=== PATIENT | male | born 1955 | race Caucasian/White ===

== ENCOUNTER 2018-02-24 15:28 | Inpatient (IN) | payer OTHER ==
--- NOTE | 2018-02-24 17:49 | HP ---
COWS - Scale Resting Pulse: 0= [place] 80 or Below Sweatin=Flushed/Facial Moisture Restless Observation: 1= Difficult to Sit Still Pupil Size: 0= Normal to Room Light Bone or Joint Aches: 2= Severe Diffuse Aches Runny Nose/ Eye Tearin= Runny Nose/Eyes GI Upset > 30mins: 1= Stomach Cramp Tremor Observation: 2= Slight Tremor Visible Yawning Observation: 2= >3x During Session Anxiety or Irritability: 2=Irritable/Anxious Goose Flesh Skin: 3=Piloerection COWS Score: 17 CIWA Score - Admission Criteria [facility] Guidelines: Admission for Medically Managed Detox: Requires at least one of the followin. CIWA greater than 12 2. Seizures within the past 24 hours 3. Delirium tremens within the past 24 hours 4. Hallucinations within the past 24 hours 5. Acute intervention needed for co occurring medical disorder 6. Acute intervention needed for co occurring psychiatric disorder 7. Severe withdrawal that cannot be handled at a lower level of care (continued vomiting, continued diarrhea, abnormal vital signs) requiring intravenous medication and/or fluids 8. Admission ROS BHS - HPI Chief Complaint: I need help with my addiction and need to go to detox. Allergies/Adverse Reactions: Allergies Allergy/AdvReac Type Severity Reaction Status Date / Time No Known Allergies Allergy Verified 02/24/18 17:35 History of Present Illness: pt is a 63yr old male with a history of heroin dependence seeking detox for treatment. This is his first time in our detox facility. Exam Limitations: No Limitations - Ebola screening Have you traveled outside of the country in the last 21 days: No Have you had contact with anyone from an Ebola affected area: No Have you been sick,other than usual withdrawal symptoms: No Do you have a fever: No - Review of Systems Constitutional: Chills, Diaphoresis, Night Sweats, Changes in sleep, Unintentional Wgt. Loss EENT: reports: Tearing, Nose Congestion Respiratory: reports: No Symptoms reported Cardiac: reports: No Symptoms Reported GI: reports: Poor Appetite, Poor Fluid Intake : reports: No Symptoms Reported Musculoskeletal: reports: Back Pain Integumentary: reports: Flushing, Sweating Neuro: reports: Headache, Tingling, Tremors Endocrine: reports: Excessive Sweating, Flushing, Intolerance to Heat Hematology: reports: No Symptoms Reported Psychiatric: reports: Judgement Intact, Mood/Affect Appropiate, Orientated x3, Agitated, Anxious Other Systems: Reviewed and Negative Patient History - Patient Medical History Hx Anemia: No Hx Asthma: No Hx Chronic Obstructive Pulmonary Disease (COPD): No Hx Cancer: No Hx Cardiac Disorders: No Hx Congestive Heart Failure: No Hx Hypertension: Yes (lisinopril 10mg) Hx Hypercholesterolemia: No Hx Pacemaker: No HX Cerebrovascular Accident: No Hx Seizures: No Hx Dementia: No Hx Diabetes: No Hx Gastrointestinal Disorders: No Hx Liver Disease: No Hx Genitourinary Disorders: No Hx Sexually Transmitted Disorders: No Hx Renal Disease (ESRD): No Hx Thyroid Disease: No Hx Human Immunodeficiency Virus (HIV): No (negative) Hx Hepatitis C: No (negative) Hx Depression: No Hx Suicide Attempt: No (denies) Hx Bipolar Disorder: No Hx Schizophrenia: No - Patient Surgical History Past Surgical History: No - PPD History Previous Implant?: Yes Documented Results: Negative w/o proof PPD to be Administered?: Yes - Reproductive History Patient is a Female of Child Bearing Age (11 -55 yrs old): No - Smoking Cessation Smoking history: Never smoked Have you smoked in the past 12 months: No Hx Chewing Tobacco Use: No Initiated information on smoking cessation: No - Substance & Tx. History Hx Alcohol Use: No Hx Substance Use: Yes Substance Use Type: Heroin Hx Substance Use Treatment: Yes (last detox [place] >10yrs ago) - Substances Abused Heroin Route: Inhalation Frequency: Daily Amount used: 10 bags Age of first use: 59 Date of Last Use: 02/24/18 Family Disease History - Family Disease History Family History: Denies Admission Physical Exam BHS - Vital Signs Vital Signs: Vital Signs - 24 hr 02/24/18 16:31 Temperature 97.3 F L Pulse Rate 60 Respiratory 18 Rate Blood Pressure 120/77 - Physical General Appearance: Yes: Appropriately Dressed, Moderate Distress, Tremorous, Irritable, Sweating, Anxious HEENTM: Yes: Hearing grossly Normal, Normal Voice, Nasal Congestion, Rhinorrhea Respiratory: Yes: Lungs Clear, Normal Breath Sounds, No Respiratory Distress Neck: Yes: No masses,lesions,Nodules Breast: Yes: Within Normal Limits Cardiology: Yes: Regular Rhythm, Regular Rate, S1, S2 Abdominal: Yes: Normal Bowel Sounds, Non Tender, Soft Genitourinary: Yes: Within Normal Limits Back: Yes: Normal Inspection Musculoskeletal: Yes: full range of Motion, Back pain Extremities: Yes: Normal Capillary Refill, Normal Inspection, Tremors Neurological: Yes: Fully Oriented, Alert, Normal Response Integumentary: Yes: Normal Color, Diaphoresis Lymphatic: Yes: Within Normal Limits - Diagnostic (1) Opioid dependence with withdrawal Current Visit: Yes Status: Chronic (2) Hypertension Current Visit: Yes Status: Chronic Qualifiers: Hypertension type: essential hypertension Qualified Code(s): I10 - Essential (primary) hypertension Cleared for Admission [facility] - Detox or Rehab [facility] Level of Care: Medically Managed Detox Regimen/Protocol: Methadone [facility] Breath Alcohol Content Breath Alcohol Content: 0 Urine Drug Screen - Results Drug Screen Negative: No Urine Drug Screen Results: THC-Marijuana, OPI-Opiates
[2018-02-24] MEDS ORDERED: LOPERAMIDE HCL 2 MG CAPSULE PO PRN (17:55)
[2018-02-24] MEDS ORDERED: P-EPHED 60MG/TRIPROLIDI 2.5MG TABLET PO PRN (17:55)
[2018-02-24] MEDS ORDERED: MAG HYDROX/AL HYDROX/SIMETH 30 ML UNIT-DOSE CUP PO PRN (17:55)
[2018-02-24] MEDS ORDERED: MENTHOL/PHENOL 1 EACH UD MM PRN (17:55)
[2018-02-24] MEDS ORDERED: MAGNESIUM CITRATE 300 ML BOTTLE PO PRN (17:55)
[2018-02-24] MEDS ORDERED: MAGNESIUM HYDROX 2400MG/30ML ORAL SUSPENSION 30 ML CUP PO PRN (17:55)
[2018-02-24] MEDS ORDERED: guaiFENesin/D-METHORPHAN HB 10 ML UNIT-DOSE CUPS PO PRN (17:55)
[2018-02-24] MEDS ORDERED: METHADONE HCL 10 MG TABLET (FOR DETOX USE ONLY) PO ONE ×2 (19:45→23:00)
[2018-02-24] MEDS: THIAMINE HCL 100 MG TABLET (FP) PO SCH (22:12)
[2018-02-24] MEDS: diazePAM 5 MG TABLET PO PRN (22:13)
[2018-02-24] MEDS: ACETAMINOPHEN 325 MG TABLET (FP) PO PRN (22:44)
[2018-02-25 01:36] LABS: URINE APPEARANCE CLEAR; URINE BILIRUBIN NEGATIVE (<2.0 mg/dL); URINE COLOR YELLOW; URINE GLUCOSE (UA) NEGATIVE (NEGATIVE); URINE KETONE NEGATIVE (NEGATIVE); URINE LEUK ESTERASE NEGATIVE (NEGATIVE); URINE NITRITE NEGATIVE (NEGATIVE); URINE PROTEIN NEGATIVE (NEGATIVE); URINE UROBILINOGEN NEGATIVE mg/dL (0.2-1.0)
[2018-02-25] MEDS: diazePAM 5 MG TABLET PO PRN ×3 (05:52→22:09)
[2018-02-25] MEDS: IBUPROFEN 400 MG TABLET (FP) PO PRN (05:52)
[2018-02-25] MEDS ORDERED: METHADONE HCL 10 MG TABLET (FOR DETOX USE ONLY) PO ONE (10:00)
[2018-02-25] MEDS: PRENATAL VITAMINS W/ FOLIC ACID TABLET (FP) PO SCH (10:04)
[2018-02-25] MEDS: LISINOPRIL 10 MG TABLET (FP) PO SCH (10:04)
[2018-02-25 10:06] LABS: HEMATOCRIT 37.4 % (35.4-49); HEMOGLOBIN 12.1 GM/dL (11.7-16.9); MCH 27.6 pg (25.7-33.7); MCHC 32.5 g/dl (32.0-35.9); MEAN CELL VOLUME 84.9 fl (80-96); MEAN PLT VOLUME 7.9 fl (7.5-11.1); PLATELET COUNT 125 K/MM3 (134-434); RDW 13.9 % (11.9-15.9); WHITE BLOOD COUNT 4.8 K/mm3 (4.0-10.0)
--- NOTE | 2018-02-25 10:53 | PN ---
BHS COWS - Scale Resting Pulse: 0= [place] 80 or Below Sweatin=Flushed/Facial Moisture Restless Observation: 1= Difficult to Sit Still Pupil Size: 0= Normal to Room Light Bone or Joint Aches: 2= Severe Diffuse Aches Runny Nose/ Eye Tearin= Runny Nose/Eyes GI Upset > 30mins: 1= Stomach Cramp Tremor Observation of Outstretched Hands: 2= Slight Tremor Visible Yawning Observation: 2= >3x During Session Anxiety or Irritability: 2=Irritable/Anxious Goose Flesh Skin: 3=Piloerection COWS Score: 17 BHS Progress Note (SOAP) Subjective: constipation sweats shakes interrupted sleep body aches Objective: 02/25/18 10:51 Vital Signs Temperature 97.7 F 02/25/18 09:17 Pulse Rate 76 02/25/18 09:17 Respiratory Rate 18 02/25/18 09:17 Blood Pressure 122/94 02/25/18 09:17 O2 Sat by Pulse Oximetry (%) Laboratory Tests 02/24/18 02/25/18 23:45 07:00 WBC 4.8 RBC 4.40 Hgb 12.1 Hct 37.4 MCV 84.9 MCH 27.6 MCHC 32.5 RDW 13.9 Plt Count 125 L MPV 7.9 Urine Color Yellow Urine Appearance Clear Urine pH 5.0 Ur Specific [place] 1.020 Urine Protein Negative Urine Glucose (UA) Negative Urine Ketones Negative Urine Blood Negative Urine Nitrite Negative Urine Bilirubin Negative Urine Urobilinogen Negative Ur Leukocyte Esterase Negative rest of labs pending aaox3 ambulating no acute distress Assessment: 02/25/18 10:51 withdrawal sx Plan: continue detox increase fluids MOM prn
[2018-02-25 11:17] LABS: ALBUMIN 3.4 g/dl (3.4-5.0); ALK PHOS 66 U/L (45-117); ANION GAP 5 MMOL/L (8-16); BILIRUBIN,TOTAL 0.3 mg/dL (0.2-1); BLOOD UREA NITROGEN 23 mg/dL (7-18); CALCIUM 8.4 mg/dL (8.5-10.1); CHLORIDE 106 mmol/L (98-107); CO2 28 mmol/L (21-32); GLUCOSE,RANDOM 87 mg/dL (74-106); POTASSIUM 3.8 mmol/L (3.5-5.1); SGOT/AST 21 U/L (15-37); SGPT/ALT 27 U/L (13-61); SODIUM 140 mmol/L (136-145); TOT PROT 6.4 g/dl (6.4-8.2)
[2018-02-25] MEDS ORDERED: LIDOCAINE 5% TOPICAL PATCH TP ONE (14:00)
[2018-02-25] MEDS ORDERED: LIDOCAINE PATCH REMOVAL MC ONE (22:00)
[2018-02-25] MEDS: THIAMINE HCL 100 MG TABLET (FP) PO SCH (22:09)
[2018-02-25] MEDS: MELATONIN 5 MG TABLETS PO PRN (22:09)
[2018-02-26] MEDS: diazePAM 5 MG TABLET PO PRN ×3 (05:35→22:02)
[2018-02-26] MEDS: ACETAMINOPHEN 325 MG TABLET (FP) PO PRN ×2 (05:36→14:06)
[2018-02-26] MEDS ORDERED: METHADONE HCL 5 MG TABLET (FOR DETOX USE ONLY) PO ONE (10:00)
[2018-02-26] MEDS: PRENATAL VITAMINS W/ FOLIC ACID TABLET (FP) PO SCH (10:16)
[2018-02-26] MEDS: LISINOPRIL 10 MG TABLET (FP) PO SCH (10:16)
[2018-02-26] MEDS: LIDOCAINE 5% TOPICAL PATCH TP SCH (10:17)
--- NOTE | 2018-02-26 12:38 | PN ---
BHS COWS - Scale Resting Pulse: 0= [place] 80 or Below Sweatin=Flushed/Facial Moisture Restless Observation: 0= Sits Still Pupil Size: 0= Normal to Room Light Bone or Joint Aches: 2= Severe Diffuse Aches Runny Nose/ Eye Tearin= Runny Nose/Eyes GI Upset > 30mins: 0= None Tremor Observation of Outstretched Hands: 2= Slight Tremor Visible Yawning Observation: 1= 1-2x During Session Anxiety or Irritability: 2=Irritable/Anxious Goose Flesh Skin: 0=Smooth Skin COWS Score: 11 BHS Progress Note (SOAP) Subjective: anxiety sweats sore throat interrupted sleep Objective: 02/26/18 12:36 Vital Signs Temperature 97.3 F L 02/26/18 09:22 Pulse Rate 62 02/26/18 09:22 Respiratory Rate 18 02/26/18 09:22 Blood Pressure 137/77 02/26/18 09:22 O2 Sat by Pulse Oximetry (%) Laboratory Tests 02/24/18 02/25/18 02/25/18 23:45 07:00 07:00 WBC 4.8 RBC 4.40 Hgb 12.1 Hct 37.4 MCV 84.9 MCH 27.6 MCHC 32.5 RDW 13.9 Plt Count 125 L MPV 7.9 Sodium Potassium Chloride Carbon Dioxide Anion Gap BUN Creatinine Creat Clearance w eGFR Random Glucose Calcium Total Bilirubin AST ALT Alkaline Phosphatase Total Protein Albumin Urine Color Yellow Urine Appearance Clear Urine pH 5.0 Ur Specific [place] 1.020 Urine Protein Negative Urine Glucose (UA) Negative Urine Ketones Negative Urine Blood Negative Urine Nitrite Negative Urine Bilirubin Negative Urine Urobilinogen Negative Ur Leukocyte Esterase Negative RPR Titer HIV 1&2 Antibody Screen Negative HIV P24 Antigen Negative 02/25/18 02/25/18 07:00 07:00 WBC RBC Hgb Hct MCV MCH MCHC RDW Plt Count MPV Sodium 140 Potassium 3.8 Chloride 106 Carbon Dioxide 28 Anion Gap 5 L BUN 23 H Creatinine 1.0 Creat Clearance w eGFR > 60 Random Glucose 87 Calcium 8.4 L Total Bilirubin 0.3 AST 21 ALT 27 Alkaline Phosphatase 66 Total Protein 6.4 Albumin 3.4 Urine Color Urine Appearance Urine pH Ur Specific [place] Urine Protein Urine Glucose (UA) Urine Ketones Urine Blood Urine Nitrite Urine Bilirubin Urine Urobilinogen Ur Leukocyte Esterase RPR Titer Nonreactive HIV 1&2 Antibody Screen HIV P24 Antigen aaox3 ambulating no acute distress Assessment: 02/26/18 12:37 withdrawal sw redness noted to back of throat Plan: continue detox increase fluids zpack ordered encouraged warm water salt gargles
[2018-02-26] MEDS ORDERED: AZITHROMYCIN 250 MG TABLET PO ONE (12:45)
[2018-02-26] MEDS: hydrOXYzine PAMOATE 50 MG CAPSULE (FP) PO PRN ×2 (17:59→22:02)
[2018-02-26] MEDS: THIAMINE HCL 100 MG TABLET (FP) PO SCH (22:01)
[2018-02-26] MEDS: LIDOCAINE PATCH REMOVAL MC SCH (22:01)
[2018-02-26] MEDS: MELATONIN 5 MG TABLETS PO PRN (22:01)
[2018-02-27] MEDS: diazePAM 5 MG TABLET PO PRN (05:16)
[2018-02-27] MEDS ORDERED: METHADONE HCL 5 MG TABLET (FOR DETOX USE ONLY) PO ONE (10:00)
[2018-02-27] MEDS: PRENATAL VITAMINS W/ FOLIC ACID TABLET (FP) PO SCH (10:08)
[2018-02-27] MEDS: LISINOPRIL 10 MG TABLET (FP) PO SCH (10:08)
[2018-02-27] MEDS: AZITHROMYCIN 250 MG TABLET PO SCH (10:08)
--- NOTE | 2018-02-27 10:13 | PN ---
BHS Progress Note (SOAP) Subjective: tired feeling better sweat Objective: 02/27/18 10:12 Vital Signs Temperature 97.3 F L 02/27/18 09:15 Pulse Rate 73 02/27/18 09:15 Respiratory Rate 18 02/27/18 09:15 Blood Pressure 134/85 02/27/18 09:15 O2 Sat by Pulse Oximetry (%) aaox3 ambulating no acute distress Assessment: 02/27/18 10:12 withdrawal sx Plan: continue detox increase fluids
--- NOTE | 2018-02-27 11:23 | EKG ---
Test Reason : Blood Pressure : / mmHG Vent. Rate : 064 BPM Atrial Rate : 064 BPM P-R Int : 196 ms QRS Dur : 096 ms QT Int : 404 ms P-R-T Axes : 061 -19 043 degrees QTc Int : 416 ms NORMAL SINUS RHYTHM NORMAL ECG NO PREVIOUS ECGS AVAILABLE Confirmed by RADHA MCLAIN, STONE ([id number]) on 02/27/2018 11:23:16 AM Referred By: Confirmed By:STONE GARCIA MD
[2018-02-27] MEDS: LIDOCAINE 5% TOPICAL PATCH TP SCH (12:32)
[2018-02-27] MEDS: IBUPROFEN 400 MG TABLET (FP) PO PRN (12:33)
[2018-02-27] MEDS: MELATONIN 5 MG TABLETS PO PRN (22:15)
[2018-02-27] MEDS: hydrOXYzine PAMOATE 50 MG CAPSULE (FP) PO PRN (22:15)
[2018-02-27] MEDS: THIAMINE HCL 100 MG TABLET (FP) PO SCH (22:15)
[2018-02-27] MEDS: LIDOCAINE PATCH REMOVAL MC SCH (22:16)
[2018-02-27] MEDS: ACETAMINOPHEN 325 MG TABLET (FP) PO PRN (22:16)
[2018-02-28] MEDS ORDERED: METHADONE HCL 10 MG TABLET (FOR DETOX USE ONLY) PO ONE (10:00)
[2018-02-28] MEDS: LIDOCAINE 5% TOPICAL PATCH TP SCH (10:16)
[2018-02-28] MEDS: AZITHROMYCIN 250 MG TABLET PO SCH (10:16)
[2018-02-28] MEDS: PRENATAL VITAMINS W/ FOLIC ACID TABLET (FP) PO SCH (10:16)
[2018-02-28] MEDS: LISINOPRIL 10 MG TABLET (FP) PO SCH (10:16)
--- NOTE | 2018-02-28 12:00 | PN ---
BHS Progress Note (SOAP) Subjective: feeling better since the abx was started anxiety Objective: 02/28/18 11:59 Vital Signs Temperature 98.2 F 02/28/18 10:09 Pulse Rate 76 02/28/18 10:09 Respiratory Rate 18 02/28/18 10:09 Blood Pressure 139/94 02/28/18 10:09 O2 Sat by Pulse Oximetry (%) aaox3 ambulating no acute distress Assessment: 02/28/18 12:00 mild withdrawal sx Plan: continue detox increase fluids rx to be sent for two more days to complete zithromax d/c in am
[2018-02-28] MEDS: ACETAMINOPHEN 325 MG TABLET (FP) PO PRN (14:41)
[2018-02-28] MEDS: hydrOXYzine PAMOATE 50 MG CAPSULE (FP) PO PRN ×2 (17:32→22:04)
[2018-02-28] MEDS: THIAMINE HCL 100 MG TABLET (FP) PO SCH (22:04)
[2018-02-28] MEDS: LIDOCAINE PATCH REMOVAL MC SCH (22:04)
[2018-02-28] MEDS: MELATONIN 5 MG TABLETS PO PRN (22:04)
[2018-03-01] MEDS ORDERED: METHADONE HCL 5 MG TABLET (FOR DETOX USE ONLY) PO ONE (06:00)
[2018-03-01 07:46] VITALS: TEMP 97.7
[2018-03-01 09:34] VITALS: BP 147/89; PULSE 72
--- NOTE | 2018-03-01 11:50 | DS ---
[facility] Detox Discharge Summary Admission Date: 02/24/18 Discharge Date: 03/01/18 - History Present History: Opioid Dependence Additional Comments: 63 years old male admitted on 02/24/18 for opiate withdrawal stabilization completed opiate detox regimen tolerated well alert no acute distress aftercare Dr. Knox for hypertension diabetes and opiate addiction issue - Physical Exam Results Vital Signs: Vital Signs Temperature 97.7 F 03/01/18 09:15 Pulse Rate 72 03/01/18 09:15 Respiratory Rate 18 03/01/18 09:15 Blood Pressure 147/89 03/01/18 09:15 O2 Sat by Pulse Oximetry (%) Pertinent Admission Physical Exam Findings: opiate withdrawal sx Vital Signs Temperature 97.7 F 03/01/18 09:15 Pulse Rate 72 03/01/18 09:15 Respiratory Rate 18 03/01/18 09:15 Blood Pressure 147/89 03/01/18 09:15 O2 Sat by Pulse Oximetry (%) Laboratory Last Values WBC 4.8 K/mm3 (4.0-10.0) 02/25/18 07:00 RBC 4.40 M/mm3 (4.00-5.60) 02/25/18 07:00 Hgb 12.1 GM/dL (11.7-16.9) 02/25/18 07:00 Hct 37.4 % (35.4-49) 02/25/18 07:00 MCV 84.9 fl (80-96) 02/25/18 07:00 MCH 27.6 pg (25.7-33.7) 02/25/18 07:00 MCHC 32.5 g/dl (32.0-35.9) 02/25/18 07:00 RDW 13.9 % (11.9-15.9) 02/25/18 07:00 Plt Count 125 K/MM3 (134-434) L 02/25/18 07:00 MPV 7.9 fl (7.5-11.1) 02/25/18 07:00 Sodium 140 mmol/L (136-145) 02/25/18 07:00 Potassium 3.8 mmol/L (3.5-5.1) 02/25/18 07:00 Chloride 106 mmol/L (98-107) 02/25/18 07:00 Carbon Dioxide 28 mmol/L (21-32) 02/25/18 07:00 Anion Gap 5 MMOL/L (8-16) L 02/25/18 07:00 BUN 23 mg/dL (7-18) H 02/25/18 07:00 Creatinine 1.0 mg/dL (0.55-1.3) 02/25/18 07:00 Creat Clearance w eGFR > 60 (>60) 02/25/18 07:00 Random Glucose 87 mg/dL (74-106) 02/25/18 07:00 Calcium 8.4 mg/dL (8.5-10.1) L 02/25/18 07:00 Total Bilirubin 0.3 mg/dL (0.2-1) 02/25/18 07:00 AST 21 U/L (15-37) 02/25/18 07:00 ALT 27 U/L (13-61) 02/25/18 07:00 Alkaline Phosphatase 66 U/L (45-117) 02/25/18 07:00 Total Protein 6.4 g/dl (6.4-8.2) 02/25/18 07:00 Albumin 3.4 g/dl (3.4-5.0) 02/25/18 07:00 Urine Color Yellow 02/24/18 23:45 Urine Appearance Clear 02/24/18 23:45 Urine pH 5.0 (5.0-8.0) 02/24/18 23:45 Ur Specific [place] 1.020 (1.010-1.035) 02/24/18 23:45 Urine Protein Negative (NEGATIVE) 02/24/18 23:45 Urine Glucose (UA) Negative (NEGATIVE) 02/24/18 23:45 Urine Ketones Negative (NEGATIVE) 02/24/18 23:45 Urine Blood Negative (NEGATIVE) 02/24/18 23:45 Urine Nitrite Negative (NEGATIVE) 02/24/18 23:45 Urine Bilirubin Negative (<2.0 mg/dL) 02/24/18 23:45 Urine Urobilinogen Negative mg/dL (0.2-1.0) 02/24/18 23:45 Ur Leukocyte Esterase Negative (NEGATIVE) 02/24/18 23:45 RPR Titer Nonreactive (NONREACTIVE) 02/25/18 07:00 HIV 1&2 Antibody Screen Negative 02/25/18 07:00 HIV P24 Antigen Negative 02/25/18 07:00 lab noted - Treatment Hospital Course: Detox Protocol Followed, Detoxed Safely, Responded well, Discharged Condition Good, Rehab Referral Accepted Patient has Accepted a Rehab Referral to: Dr. Knox - Medication Discharge Medications: Ambulatory Orders Azithromycin [Zithromax 250mg Tablets -] 250 mg PO DAILY #7 tablet 03/01/18 Lisinopril 10 mg PO DAILY #14 tablet 03/01/18 - Diagnosis (1) Diabetes mellitus type II, controlled Status: Acute (2) Opioid dependence with withdrawal Status: Chronic (3) Hypertension Status: Chronic Qualifiers: Hypertension type: essential hypertension Qualified Code(s): I10 - Essential (primary) hypertension - AMA Did Patient Leave Against Medical Advice: No
== END 2018-03-01 09:21 | disposition home or self-care (01) | DRG 897 ==
LOC: YASAS 15:28 → Y6N 19:14
PROC: HZ2ZZZZ Detoxification Services for Substance Abuse Treatment (ICD-10-PCS; principal; 2018-02-24)
DX: F11.23 Opioid dependence with withdrawal (principal); I10 Essential (primary) hypertension; E78.00 Pure hypercholesterolemia, unspecified; E11.9 Type 2 diabetes mellitus without complications; Z79.84 Long term (current) use of oral hypoglycemic drugs; J02.9 Acute pharyngitis, unspecified
CPT/HCPCS: 36415; 80053; 81003; 85027; 86593; 87389; 93005; 93010